=== PATIENT | female | born 1990 | race Caucasian/White ===

== ENCOUNTER → 2018-08-09 | Outpatient (CLI) | payer OTHER ==
[~2018-08-09] MED LIST: CONTRAST GIVEN. MC PRN; IOHEXOL 300 MG/ML 50 ML VIAL. IJ ONE
--- NOTE | 2018-08-09 11:35 | RAD ---
DATE: August 09, 2018 EXAM: MAMMO JEWEL DIAG BILAT, DUCTOGRAM SINGLE DUCT RT W/INJ, BREAST RIGHT HISTORY: Brownish right nipple discharge for 3 months. COMPARISON: None. This study was interpreted with the benefit of Computerized Aided Detection (CAD). 2-D digital mammographic views of both breasts were performed in the CC and MLO projections. 3-D digital tomosynthesis images of both breasts were performed in the CC and MLO projections and reviewed on a computer workstation. FINDINGS: Breast Density: HETERO The breast parenchyma is heterogenously dense, which could reduce sensitivity of mammography. Breast parenchyma level C.. Bilateral retroareolar nodularity is evident. No spiculated lesion or architectural distortion or clustering of pleomorphic microcalcifications are evident. RIGHT BREAST SONOGRAPHY: High-resolution sonography of the retroareolar region of the right breast was performed. At the 12:00 position 3 cm the nipple, a small hypoechoic nodule is seen measuring 3 mm in greatest dimension. There is sound through transmission. This may represent a complex cyst. LEFT BREAST SONOGRAPHY: High-resolution sonography of the retroareolar region of left breast was performed. At the 12:00 position just behind the nipple, a 5 mm round smooth hypoechoic nodule is seen. At the 12:00 position 3 cm from the nipple, a round smooth hypoechoic nodule is seen measuring 6 mm. RIGHT BREAST DUCTOGRAM: The patient was able to express creamy white discharge from the nipple of the right breast. A timeout was performed which confirmed the name of the patient and date of and the type of procedure and the side of the procedure. No allergies to iodinated contrast. The nipple was cleansed with Betadine. Using sterile technique, a small ductogram cannula was inserted into the lactiferous duct demonstrating discharge. Following this, a total of 1.5 cc of Omnipaque 300 was injected until the patient felt fullness of the right breast. Following this, digital 2-D CC and 90 degree mediolateral views of the right breast were performed. The patient tolerated the procedure well without complication. There is opacification of a lactiferous duct within the lateral inferior aspect of the right breast. Mild ductal ectasia is seen but no filling defect is evident. IMPRESSION: Bilateral retroareolar nodularity mammographically and sonographically. Recommend 6 month follow-up bilateral diagnostic 3-D mammogram and bilateral breast sonogram. Findings are most likely benign. Right breast ductogram demonstrates no abnormal filling defect. Recommend correlation with serum prolactin level. BI-RADS CATEGORY: 3 PROBABLE BENIGN-SHORT TERM F/U RECOMMENDED FOLLOW-UP: 6M 6 MONTH FOLLOW-UP PQRS compliance statement: Patient information was entered into a reminder system with a target due date February 07, 2019 for the next mammogram and sonogram. Mammography is a sensitive method for finding small breast cancers, but it does not detect them all and is not a substitute for careful clinical examination. A negative mammogram does not negate a clinically suspicious finding and should not result in delay in biopsying a clinically suspicious abnormality. "Our facility is accredited by the [employer] Mammography Program." The patient's breast density may affect the ability of mammography to detect breast cancer. There are 4 categories of breast density, A, B, C and D. Breast density A means that most of the breast tissue is replaced with adipose tissue and therefore is not dense. Breast density B means that the breast tissue is mildly dense and scattered. Breast density C means that the breast tissue is heterogeneously dense. Breast density D means that the breast tissue is very dense. Breast densities especially C and D may decrease the sensitivity of mammography to detect breast cancer. Therefore, the patient may benefit from 3-D breast mammography (3D breast tomography) as a part of their screening mammogram. Insurance may or may not pay for this additional imaging. The patient's breast density based on today's mammogram is category C.
== END | disposition home or self-care (01) ==
LOC: US 06-15 08:35 → EDUNIT# 06-15 09:00 → US 07:50
PROVIDERS: ATTEND Nurse Practitioner Family
DX: N64.52 Nipple discharge (principal)
CPT/HCPCS: 19030; 76641; 77053; 77066; G0279; Q9967; 77062